=== PATIENT | female | born 1965 | race African-American/Black ===

== ENCOUNTER 2018-01-27 08:16 | Day surgery (SDC) | payer MEDICARE, MEDICAID ==
[~2018-01-27] VITALS: Ht 165.1 cm; Wt 89.1 kg
--- NOTE | ~2018-01-27 | OP ---
PATIENT NAME: OLIVIA SHARP MEDICAL RECORD: [id number] :[id number] LOCATION:[facility] ADMISSION DATE: SURGEON: OANH BARR MD DATE OF OPERATION: 01/27/2018 REFERRING PHYSICIAN: Dr. Finney, in [place]. ANESTHESIA: Regional nerve block plus general anesthesia with LMA, all per [employer]. SURGEON: Oanh Barr MD PREOPERATIVE DIAGNOSES: End-stage renal disease with dependence on catheter in the right femoral vein for hemodialysis access. 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 OPERATION PERFORMED: Ultrasound-guided access of the left basilic vein and venogram noting occlusion of the left brachiocephalic vein, which appeared to be chronic, although there was not venous dilatation or extensive collaterals seen. The balloon angioplasty was performed of the left brachiocephalic vein with repeat angiogram demonstrating no filling via the superior vena cava of the right atrium. Then, left common femoral vein ultrasound-guided access and inferior vena cavogram demonstrating open left iliac veins, but narrowed or stenotic inferior vena cava with TDC in place in the IVC. Then, implantation of a 6 mm Propaten PTFE loop graft in the left thigh femoral artery to femoral vein using Propaten PTFE and the operation was complicated by intraoperative injury of the deep femoral artery with rather massive but short lived hemorrhage before control was obtained and subsequently open direct repair of the deep femoral artery was carried out with thromboendarterectomy and a bovine pericardial patch angioplasty. PREOPERATIVE NOTE: Ms. Sharp is a 52-year-old -[place] female from [place] who has had numerous failed accesses and now is dependent on a right femoral tunneled dialysis catheter. She was referred to me for possible HeRO graft implantation. She is brought to the operating room now to perform a left upper extremity venogram and possible left upper extremity AV graft or implantation of HeRO graft. After regional nerve block was administered per [employer], the patient was placed on the operating table and general anesthesia with an LMA administered per [employer]. The left arm was abducted and prepped and draped in sterile manner. I used ultrasound guidance to access the basilic vein above the antecubital space with micropuncture technique and inserted a 6-Irish introducer. Contrast injection then demonstrated occlusion of the left brachiocephalic vein with back or retrograde filling of the internal jugular vein and really little in the way of venous collaterals as one might expect with such chronic occlusions. I found that I was able to cross the brachiocephalic vein with a guidewire and the guidewire then entered what I thought at first was the superior vena cava, but would not pass into the right atrium. Subsequent contrast injection demonstrated that the wire had gone into the azygos vein. The catheter was pulled back and repeated contrast injections demonstrated that the most proximal brachiocephalic vein and the superior vena cava itself were occluded. I imaged OPERATIVE REPORT [id number] OLIVIA SHARP the right internal jugular vein and it like the counterpart on the left appeared to be quite small and I suspect that there is collateral venous filling of the right atrium, which I did not visualize; however, I decided at this point that the patient was not a candidate for implantation of a HeRO nor was she a candidate for an upper extremity AV graft because of the central vein occlusions and stenosis. It may be in the future when the inside-out procedure has gotten FDA approval and is readily available in the [facility] that access to the right atrium could be obtained and then an upper extremity HeRO graft could well be possible. For now, I decided that we should go to the left side for a femoral-femoral loop graft. The sheath was removed and hemostasis obtained with direct pressure and a sterile dressing applied. The patient's groin was prepped and draped in a sterile manner. I made an oblique incision and exposed the saphenous vein and the left common femoral vein and the common femoral artery, deep femoral artery and superficial femoral artery vessels were controlled with Silastic loops. During the dissection, there was an accidental injury to the deep femoral artery from which there was a rapid massive blood loss before it was controlled. The blood loss was really between 1 and 2 units. She was given 2 units of packed red blood cells intraoperatively. The injury was to the deep femoral artery itself from the crotch to the arteries bifurcation, so the distal branches of the deep femoral were dissected and controlled with Silastic loops. The artery was then debrided. Endarterectomy was necessary and the arterial wall was repaired with a bovine pericardial patch and running 7-0 Prolene. When completed, excellent flow was restored to the deep femoral vessels and the suture lines were hemostatic. I then chose Deane Propaten 6-mm diameter straight PTFE graft. I anastomosed the graft end-to-side of common femoral artery with running 6-0 Prolene after flushing the femoral artery proximally and distally with heparin. The graft was placed in a very superficial subcutaneous tunnel, which curved around 360 degrees back to the groin where the PTFE was bevelled and anastomosed end-to-side to the common femoral vein with running 6-0 Prolene after the vein also was flushed with heparinized saline as was the graft. When released, all of the anastomosis and suture lines were hemostatic and excellent flow developed immediately within the new AV graft and there was excellent persistent pulsatile flow in the left deep femoral artery as well. The wound was irrigated with Ancef/gentamicin solution and closed in layers without the use of a drain approximating the subcutaneous tissues with interrupted inverted 3-0 Vicryl. Skin was closed with running intracuticular 4-0 Monocryl and Dermabond glue and then dressed with Maxorb Ag, Tegaderm, and Cavilon skin prep. At this point, the patient who was stable, was awakened and taken to the recovery room in stable condition. There was good Doppler continuous pulsatile flow in the graft and there was no evidence of external or internal bleeding. Blood loss as I said was between 500 and 1000 cc. She received 2 units of packed red blood cells intraoperatively. All sponges, instruments and needles were accounted for. No drain was used and no surgical specimen was submitted for histopathology. PLAN: The patient will remain in overnight observation and go home tomorrow. She will come back to see me in about 2 weeks and I expect that her graft should be able to be used for dialysis access shortly after that. Hopefully, she will be able to have her tunneled dialysis catheter removed soon that is as soon as the loop graft has been demonstrated to be reliable. OPERATIVE REPORT [id number] OLIVIA SHARP TRANSINT:[id number] Voice Confirmation ID: [id number] DOCUMENT ID: [id number] CC: Dr. Kathie Finney OANH BARR MD at 2205 CC: DR. KATHIE FINNEY [id number] DICTATION DATE: 02/13/18 1839 OPEN DIE INSPECTOR: 02/14/18 0121 [facility] 01/28/18 [facility] [address] [place] [address]
[2018-01-27 08:59] LABS: APTT 30.7 SECONDS (22.8-39.4); INR 1.01 (0.85-1.17); PROTIME 12.9 SECONDS (11.6-15.0)
[2018-01-27 09:00] LABS: ANION GAP 17.5 mmol/L (8-16); CALCIUM 9.2 mg/dL (8.5-10.1); CARBON DIOXIDE 26.4 mmol/L (21.0-32.0); CREATININE - SERUM 7.9 mg/dL (0.6-1.3); POTASSIUM - SERUM 4.9 mmol/L (3.5-5.1)
[2018-01-27 09:03] LABS: BASOPHILS 0.5 % (0-2); EOSINOPHILS 2.7 % (0-7); HEMATOCRIT 40.4 % (36.0-48.0); HEMOGLOBIN 13.1 g/dL (12-16); LYMPHOCYTES 42.3 % (15-50); MCHC 32.4 g/dL (31.0-37.0); MONOCYTES 6.9 % (2-11); NEUTROPHILS 47.6 % (40-80); PLATELET COUNT 177 10x3/uL (130-400); RBC 5.25 10x6/uL (4.00-5.40); RDW 20.5 % (11.5-14.5); WBC 4.1 10x3/uL (4.8-10.8)
[2018-01-27 09:29] LABS: MEAN PLATELET VOLUME 8.8 fL (7.4-10.4)
[2018-01-27] MEDS ORDERED: PHOSLO667 MG PO (09:44)
[2018-01-27] MEDS ORDERED: NEPHRO-VITE RX1 TAB PO (09:44)
[2018-01-27] MEDS ORDERED: TOPROL XL25 MG PO (09:45)
[2018-01-27 10:44] LABS: HCG SERUM NEGATIVE (NEGATIVE)
[2018-01-27 23:38] VITALS: BP 103/57; Ht 165.1 cm; Wt 89.1 kg
[2018-01-28] VITALS: BP 95/38
[2018-01-28 04:00] VITALS: BP 84/41
[2018-01-28 05:29] LABS: BASOPHILS 0.2 % (0-2); EOSINOPHILS 2.2 % (0-7); LYMPHOCYTES 21.6 % (15-50); MCHC 30.8 g/dL (31.0-37.0); MCV 77.8 fL (80.0-100.0); MEAN PLATELET VOLUME 9.1 fL (7.4-10.4); MONOCYTES 10.3 % (2-11); NEUTROPHILS 65.7 % (40-80); RDW 20.4 % (11.5-14.5)
[2018-01-28 05:44] LABS: HEMATOCRIT 30.2 % (36.0-48.0); HEMOGLOBIN 9.3 g/dL (12-16); PLATELET COUNT 134 10x3/uL (130-400); RBC 3.88 10x6/uL (4.00-5.40); WBC 5.4 10x3/uL (4.8-10.8)
[2018-01-28 08:24] VITALS: BP 81/50
[2018-01-28 08:46] LABS: ALBUMIN 3.2 g/dL (3.4-5.0); ANION GAP 9.6 mmol/L (8-16); BILIRUBIN - TOTAL 0.37 mg/dL (0.2-1.3); CALCIUM 8.3 mg/dL (8.5-10.1); CARBON DIOXIDE 26.8 mmol/L (21.0-32.0); CREATININE - SERUM 9.8 mg/dL (0.6-1.3); POTASSIUM - SERUM 5.4 mmol/L (3.5-5.1)
[2018-01-28] MEDS ORDERED: HYDROCODON-ACE1 EAC7 PO (15:03)
== END 2018-01-28 15:36 | disposition home or self-care (01) ==
LOC: D.OPS 08:16 → D.M2 19:23 → D.OPS 01-28 15:36
PROVIDERS: Anesthesiology; Internal Medicine; Surgery
DX: N18.6 End stage renal disease (principal); Z99.2 Dependence on renal dialysis; I87.1 Compression of vein; I82.210 Acute embolism and thrombosis of superior vena cava; I82.290 Acute embolism and thrombosis of other thoracic veins; I97.51 Accidental puncture and laceration of a circulatory system organ or structure during a circulatory system procedure; Y83.2 Surgical operation with anastomosis, bypass or graft as the cause of abnormal reaction of the patient, or of later complication, without mention of misadventure at the time of the procedure; Y92.530 Ambulatory surgery center as the place of occurrence of the external cause; Z01.812 Encounter for preprocedural laboratory examination